=== PATIENT | male | born 1965 | race African-American/Black ===

== ENCOUNTER 2019-09-29 11:46 | Emergency (ER) | payer BC ==
[~2019-09-29] VITALS: Ht 165.1 cm; Wt 105.9 kg
[2019-09-29 11:49] VITALS: TEMP 98.1
[2019-09-29] MEDS ORDERED: ZESTRIL 5MG5 MG (12:02)
[2019-09-29 12:21] LABS: ALBUMIN 4.4 gm/dL (3.5-5.0); BILIRUBIN,TOTAL 0.9 mg/dL (0.0-1.0); CALCIUM 9.5 mg/dL (8.4-10.2); CREATININE, serum 1.15 (0.66-1.25); POTASSIUM 4.5 mmol/L (3.4-5.0); TOTAL PROTEIN 7.9 gm/dL (6.4-8.2)
[2019-09-29] MEDS ORDERED: ZYLOPRIM 100MG100 MG (12:31)
[2019-09-29 12:32] LABS: TROPONIN-I 0.013 ng/mL (0.000-0.035)
[2019-09-29] MEDS ORDERED: LIPITOR 10MG10 MG (12:32)
[2019-09-29] MEDS ORDERED: VIVLODEX5 MG (12:32)
[2019-09-29 12:45] LABS: BASO # 0.1 (0.0-0.2); EOS # 0.2 (0.0-0.7); EOS % 2.9 % (0-4.0); GRAN # 3.7 (1.4-6.5); GRAN % 59.3 % (42.2-75.2); HEMATOCRIT 43.5 % (42.0-52.0); HEMOGLOBIN 14.2 g/dl (13.5-18.0); LYMPH # 1.6 (1.2-3.4); LYMPH % 25.2 % (20.0-51.0); MEAN CELL VOLUME 86 fl (80.0-100.0); MEAN CORPUSCULAR HEMOGLOBIN 28 pg (27.0-31.0); MEAN CORPUSCULAR HGB CONC 33 g/dl (33.0-37.0); MEAN PLATELET VOLUME 10.3 fl (7.4-10.4); MONO # 0.7 (0.1-0.6); PLATELET COUNT 253 K/mm3 (130-400); RED BLOOD COUNT 5.06 M/mm3 (4.20-5.60); REDCELL DISTRIBUTION WIDTH-CV 14.5 % (11.5-14.5)
[2019-09-29 15:19] VITALS: BP 137/99; PULSE 78
== END 2019-09-29 15:19 | disposition home or self-care (01) ==
LOC: COL.ER 11:46
PROVIDERS: Emergency Medicine
DX: R07.9 Chest pain, unspecified (principal)